=== PATIENT | male | born 1985 | race Caucasian/White ===

== ENCOUNTER 2020-04-28 04:03 | Inpatient (IN) ==
[2020-04-28] MEDS ORDERED: NS 0.9% 1000 ml BAG 1,000 ML IV ONE ×3 (04:18→07:12)
[2020-04-28] MEDS ORDERED: Al Hydrox/Mg Hydrox/Simet LIQ 30 ML UDC PO ONE (04:37)
[2020-04-28] MEDS ORDERED: Morphine 4 MG/ML VIAL (1 ml) IV ONE (04:38)
[2020-04-28] MEDS ORDERED: Ondansetron 4 mg VIAL 2 MG/ML 2 ml VIAL IV ONE (04:38)
[2020-04-28 04:53] LABS: ABS Basophils 0.1 10^3/ul (0-0.2); ABS Eosinophils 0.2 10^3/ul (0-0.6); ABS Lymphocytes 2.4 10^3/ul (1.0-4.8); ABS Monocytes 0.8 10^3/ul (0-0.8); ABS Neutrophils 12.7 10^3/ul (1.5-7.7); Eosinophil % 1.2 %; Hematocrit 43 % (42-52); Hemoglobin 15.4 g/dL (14.0-18.0); Mean Corpuscular HGB Conc 36 g/dL (31-36); Mean Corpuscular Hemoglobin 33 pg (27-31); Mean Corpuscular Volume 91 fL (80-94); Mean Platelet Volume 6.6 fL (7.4-10.4); Nucleated Red Blood Cells % 0.1; Platelet Count 402 10^3/uL (150-450); Red Cell Distribution Width 14 % (10-15); White Blood Count 16.2 10^3/uL (3.5-10.8)
[2020-04-28 05:42] LABS: Glucose 34 mg/dL (70-100)
[2020-04-28 05:43] LABS: ALT 24 U/L (7-52); BUN/Creatinine Ratio 9.8 (8-20); Blood Urea Nitrogen 10 mg/dL (6-24); CO2 Carbon Dioxide 19 mmol/L (22-32); EGFR African American 102.4 (>60); EGFR Non-African American 84.6 (>60)
[2020-04-28 05:44] LABS: Albumin 4.2 g/dL (3.2-5.2); Albumin/Globulin Ratio 1.5 (1-3); Alkaline Phosphatase 82 U/L (34-104); C Reactive Protein 22.18 mg/L (<8.01); Calcium 9.4 mg/dL (8.6-10.3); Globulin 2.8 g/dL (2-4); Lipase 305 U/L (11.0-82.0)
[2020-04-28 06:07] LABS: Potassium, Whole Blood 5.4 mmol/L (3.4-4.5)
[2020-04-28] MEDS ORDERED: Iohexol 300 (CONTRAST) 10 ML SDV IV ONE (06:28)
[2020-04-28] MEDS ORDERED: Pantoprazole VIAL 40 MG VIAL IV ONE (07:11)
[2020-04-28] MEDS ORDERED: cefTRIAXone 1 gm/50 mL NS BAG 1 GM/50 ML BAG IV ONE (07:11)
[2020-04-28 08:09] LABS: Cholesterol 424 mg/dL; HDL Cholesterol 27.3 mg/dL; Triglycerides 3204 mg/dL
[2020-04-28 08:23] LABS: Urine Appearance Clear; Urine Bilirubin Negative (Negative); Urine Blood Negative (Negative); Urine Color Yellow; Urine Glucose Negative (Negative); Urine Ketones Negative (Negative); Urine Nitrite Negative (Negative); Urine Protein Negative (Negative); Urine Specific Gravity 1.011 (1.010-1.030); Urine Urobilinogen Negative (Negative)
[2020-04-28 08:28] LABS: LDL Cholesterol Direct 85 mg/dL
[2020-04-28] MEDS ORDERED: fentaNYL 100 mcg/2 ml 50 MCG/ML VIAL IV SLOW PU ONE (09:19)
[2020-04-28] MEDS ORDERED: D5LR 1000 ml BAG 1,000 ML IV SCH (10:00)
[2020-04-28] MEDS ORDERED: Gemfibrozil 600 mg PO SCH (10:00)
[2020-04-28] MEDS ORDERED: Dextrose 50% Syringe 50 ml 25 GM/50 ML SYRINGE IV PUSH PRN (11:13)
[2020-04-28] MEDS ORDERED: Insulin Infusion 100unit/100mL 100 UNIT/100 ML BAG IV SCH ×2 (11:30→12:00)
[2020-04-28 12:23] LABS: BUN/Creatinine Ratio 9.1 (8-20); Blood Urea Nitrogen 8 mg/dL (6-24); CO2 Carbon Dioxide 22 mmol/L (22-32); Calcium 8.8 mg/dL (8.6-10.3); EGFR African American 121.4 (>60); EGFR Non-African American 100.4 (>60); Glucose 88 mg/dL (70-100)
[2020-04-28 13:37] LABS: Potassium, Whole Blood 5.6 mmol/L (3.4-4.5)
[2020-04-28] MEDS: Heparin 5000 UNITS/ML 1 mL VIAL SUBCUT SCH ×2 (14:34→21:45)
[2020-04-28 16:10] LABS: Creatine Kinase 104 U/L (10-223)
[2020-04-28] MEDS ORDERED: D10W 1000 ml BAG 1,000 ML IV SCH (17:00)
[2020-04-28] MEDS: Sodium Chloride CONC. 4 MEQ/ML 77 MEQ in D10W 1000 ml BAG 1,000 ML IV SCH (18:14)
[2020-04-28 20:02] LABS: BUN/Creatinine Ratio 10.1 (8-20); Blood Urea Nitrogen 8 mg/dL (6-24); CO2 Carbon Dioxide 24 mmol/L (22-32); Calcium 8.6 mg/dL (8.6-10.3); Chloride 102 mmol/L (101-111); EGFR African American 137.5 (>60); EGFR Non-African American 113.7 (>60); Glucose 146 mg/dL (70-100); Sodium 132 mmol/L (135-145)
[2020-04-28 20:06] LABS: Anion Gap 6 mmol/L (2-11)
[2020-04-28] MEDS: Nicotine PATCH 21 MG/24 HR PATCH TRANSDERM SCH (21:45)
[2020-04-29] MEDS ORDERED: DEXTROSE IV SCH (02:00)
[2020-04-29] MEDS ORDERED: [UNRECOGNIZED DRUG - OTHER] IV SCH (02:00)
[2020-04-29 02:02] LABS: Anion Gap 5 mmol/L (2-11); BUN/Creatinine Ratio 9.9 (8-20); Blood Urea Nitrogen 8 mg/dL (6-24); CO2 Carbon Dioxide 22 mmol/L (22-32); Calcium 7.6 mg/dL (8.6-10.3); Chloride 99 mmol/L (101-111); EGFR African American 133.6 (>60); EGFR Non-African American 110.4 (>60); Potassium 3.4 mmol/L (3.5-5.0); Sodium 126 mmol/L (135-145)
[2020-04-29 02:36] LABS: BUN/Creatinine Ratio 11.7 (8-20); Blood Urea Nitrogen 9 mg/dL (6-24); CO2 Carbon Dioxide 24 mmol/L (22-32); Calcium 8.7 mg/dL (8.6-10.3); Chloride 101 mmol/L (101-111); EGFR African American 141.7 (>60); EGFR Non-African American 117.1 (>60); Glucose 131 mg/dL (70-100); Sodium 131 mmol/L (135-145)
[2020-04-29 02:38] LABS: Anion Gap 6 mmol/L (2-11)
[2020-04-29] MEDS: Sodium Chloride CONC. 4 MEQ/ML 77 MEQ in D10W 1000 ml BAG 1,000 ML IV SCH (04:06)
[2020-04-29] MEDS ORDERED: Potassium Chlor 20 meq TAB.ER PO ONE (04:30)
[2020-04-29 05:25] LABS: ABS Basophils 0.1 10^3/ul (0-0.2); ABS Eosinophils 0.1 10^3/ul (0-0.6); ABS Lymphocytes 2.5 10^3/ul (1.0-4.8); ABS Neutrophils 11.5 10^3/ul (1.5-7.7); Eosinophil % 0.6 %; Hematocrit 42 % (42-52); Hemoglobin 14.8 g/dL (14.0-18.0); Lymphocyte % 16.3 %; Mean Corpuscular HGB Conc 35 g/dL (31-36); Mean Corpuscular Hemoglobin 32 pg (27-31); Mean Corpuscular Volume 92 fL (80-94); Mean Platelet Volume 6.5 fL (7.4-10.4); Nucleated Red Blood Cells % 0.1; Platelet Count 328 10^3/uL (150-450); Red Blood Count 4.62 10^6 /uL (4.18-5.48); Red Cell Distribution Width 14 % (10-15); White Blood Count 15.1 10^3/uL (3.5-10.8)
[2020-04-29] MEDS: Heparin 5000 UNITS/ML 1 mL VIAL SUBCUT SCH ×3 (05:28→21:57)
[2020-04-29 05:41] LABS: Calcium 8.5 mg/dL (8.6-10.3); EGFR Non-African American 120.7 (>60); Magnesium 1.9 mg/dL (1.9-2.7); Phosphorus 2.6 mg/dL (2.5-5.0); Potassium 3.8 mmol/L (3.5-5.0)
[2020-04-29] MEDS: Nicotine PATCH 21 MG/24 HR PATCH TRANSDERM SCH (09:05)
[2020-04-29 09:40] LABS: Calcium 8.7 mg/dL (8.6-10.3); EGFR African American 131.7 (>60); EGFR Non-African American 108.9 (>60); Potassium 4.2 mmol/L (3.5-5.0)
[2020-04-29] MEDS ORDERED: Lactated Ringers 1000 ml BAG 1,000 ML IV ONE (11:47)
[2020-04-29 14:01] LABS: Magnesium 1.9 mg/dL (1.9-2.7); Phosphorus 2.7 mg/dL (2.5-5.0)
[2020-04-29 14:50] LABS: Urine Appearance Clear; Urine Bilirubin Negative (Negative); Urine Blood Negative (Negative); Urine Color Straw; Urine Glucose Negative (Negative); Urine Ketones Negative (Negative); Urine Nitrite Negative (Negative); Urine Protein Negative (Negative); Urine Specific Gravity 1.004 (1.010-1.030); Urine Urobilinogen Negative (Negative)
[2020-04-30] MEDS: Heparin 5000 UNITS/ML 1 mL VIAL SUBCUT SCH (05:29)
[2020-04-30 07:09] VITALS: BP 142/77
[2020-04-30 07:53] LABS: ABS Basophils 0.1 10^3/ul (0-0.2); ABS Eosinophils 0.1 10^3/ul (0-0.6); ABS Lymphocytes 2.7 10^3/ul (1.0-4.8); ABS Monocytes 1.1 10^3/ul (0-0.8); ABS Neutrophils 11.3 10^3/ul (1.5-7.7); Eosinophil % 0.6 %; Hematocrit 40 % (42-52); Hemoglobin 13.8 g/dL (14.0-18.0); Lymphocyte % 17.8 %; Mean Corpuscular HGB Conc 35 g/dL (31-36); Mean Corpuscular Hemoglobin 32 pg (27-31); Mean Corpuscular Volume 93 fL (80-94); Mean Platelet Volume 6.8 fL (7.4-10.4); Platelet Count 300 10^3/uL (150-450); Red Cell Distribution Width 13 % (10-15); White Blood Count 15.2 10^3/uL (3.5-10.8)
[2020-04-30 08:05] LABS: BUN/Creatinine Ratio 13.8 (8-20); Calcium 8.7 mg/dL (8.6-10.3); EGFR Non-African American 101.7 (>60); Potassium 3.9 mmol/L (3.5-5.0)
[2020-04-30] MEDS: Nicotine PATCH 21 MG/24 HR PATCH TRANSDERM SCH (09:19)
[2020-04-30 11:15] LABS: C Reactive Protein 228.19 mg/L (<8.01)
== END 2020-04-30 10:32 | disposition left against medical advice (07) | DRG 282 ==
LOC: ED 04:03 → ICU 09:25 → MEDTELE 04-29 18:43
PROVIDERS: ADMIT Internal Medicine Critical Care Medicine; ATTEND Internal Medicine

== ENCOUNTER 2023-10-27 14:50 | Inpatient (IN) ==
[2023-10-27 16:11] LABS: High Sens Troponin Baseline 5 pg/mL (<20)
[2023-10-27 16:13] LABS: INR 1.01 (0.85-1.14)
[2023-10-27] MEDS: Morphine 4 MG/ML VIAL (1 ml) IV ONE ×3 (16:25→19:14)
[2023-10-27] MEDS: Ondansetron 4 mg VIAL 2 MG/ML 2 ml VIAL IV ONE (16:25)
[2023-10-27] MEDS: Lactated Ringers 1000 ml BAG 1,000 ML IV ONE ×2 (16:25→18:06)
[2023-10-27 16:49] LABS: ABS Basophils 0.1 10^3/uL (0.0-0.1); ABS Lymphocytes 1.6 10^3/uL (1.0-4.8); ABS Monocytes 0.8 10^3/uL (0.0-1.1); ABS Neutrophils 16.5 10^3/uL (1.5-7.6); ABS Nucleated RBC 0.03 10^3/ul; Eosinophil % 0.2 %; Hematocrit 43.1 % (38-53); Hemoglobin 15.9 g/dL (13.2-16.3); Lymphocyte % 8.6 %; Mean Corpuscular Hemoglobin 33.9 pg (27-33); Mean Corpuscular Hgb Conc 36.8 g/dL (31-36); Mean Platelet Volume 8.8 fL (7.5-11.2); Nucleated Red Blood Cells % 0.2 %/100WBC (0.0-0.8); Platelet Count 365 10^3/uL (150-450); Red Blood Count 4.68 10^6/uL (4.06-5.63); Red Cell Distribution Width 14.3 % (12-17); White Blood Count 19.1 10^3/uL (3.6-10.2)
[2023-10-27 17:04] LABS: Sodium 124 mmol/L (135-145)
[2023-10-27 17:05] LABS: ALT 27 U/L (7-52); Albumin 4.9 g/dL (3.2-5.2); Albumin/Globulin Ratio 1.9 (1-3); Alkaline Phosphatase 78 U/L (35-149); Anion Gap 4 mmol/L (2-16); Blood Urea Nitrogen 14 mg/dL (6-24); C Reactive Protein 14.73 mg/L (<8.01); CO2 Carbon Dioxide 25 mmol/L (22-32); Calcium 9.1 mg/dL (8.6-10.3); Chloride 95 mmol/L (101-111); Creatinine, Serum 1.33 mg/dL (0.67-1.17); Globulin 2.6 g/dL (2-4); Glucose 130 mg/dL (70-100); Total Bilirubin 0.4 mg/dL (0.2-1.0); Total Protein 7.5 g/dL (6.4-8.9)
[2023-10-27 17:06] LABS: Urine Appearance Clear; Urine Bilirubin Negative (Negative); Urine Blood Negative (Negative); Urine Color Light-Yellow; Urine Glucose Negative (Negative); Urine Ketones Negative (Negative); Urine Nitrite Negative (Negative); Urine Protein Negative (Negative); Urine Specific Gravity 1.027 (1.002-1.030); Urine Urobilinogen Negative (Negative)
[2023-10-27 17:13] LABS: High Sensitivity Troponin 1 Hr 6 pg/mL (<20)
[2023-10-27] MEDS: Iohexol 350 (CONTRAST) 500 ML MDV IV ONE (17:22)
[2023-10-27 18:43] LABS: Triglycerides 3259 mg/dL
[2023-10-27 20:04] LABS: Potassium, Whole Blood 8.1 mmol/L (3.4-4.5)
[2023-10-27] MEDS: Acetaminophen IV 1 GM/100ML 1,000 MG/100 ML BAG IV PRN (20:27)
[2023-10-27 21:03] LABS: Cholesterol 360 mg/dL; HDL Cholesterol 24.8 mg/dL
[2023-10-27 21:04] LABS: Triglycerides 2331 mg/dL
[2023-10-27 21:32] LABS: LDL Cholesterol Direct 81 mg/dL
[2023-10-27 21:43] LABS: Albumin 3.9 g/dL (3.2-5.2); Albumin/Globulin Ratio 1.5 (1-3); Alkaline Phosphatase 86 U/L (35-149); Anion Gap 10 mmol/L (2-16); Blood Urea Nitrogen 13 mg/dL (6-24); CO2 Carbon Dioxide 21 mmol/L (22-32); Calcium 8.1 mg/dL (8.6-10.3); Chloride 97 mmol/L (101-111); Creatinine, Serum 0.78 mg/dL (0.67-1.17); Globulin 2.6 g/dL (2-4); Glucose 156 mg/dL (70-100); Sodium 128 mmol/L (135-145); Total Protein 6.5 g/dL (6.4-8.9); eGFR CKD-EPI 118.5 (>60)
[2023-10-27] MEDS: Dextrose 50% Syringe 50 ml 25 GM/50 ML SYRINGE IV PUSH ONE (21:45)
[2023-10-27] MEDS: CALCIUM GLUCONATE 1GM/50ML NS 1 GM/50 ML BAG IV ONE (21:48)
[2023-10-27] MEDS ORDERED: Dextrose 50% Syringe 50 ml 25 GM/50 ML SYRINGE IV PUSH PRN (22:34)
[2023-10-27 22:44] LABS: ALT 27 U/L (7-52)
[2023-10-27] MEDS: Lactated Ringers 1000 ml BAG 1,000 ML IV SCH ×2 (23:04→23:15)
[2023-10-27 23:11] LABS: ABS Basophils 0.1 10^3/uL (0.0-0.1); ABS Lymphocytes 1.3 10^3/uL (1.0-4.8); ABS Monocytes 0.7 10^3/uL (0.0-1.1); ABS Neutrophils 12.1 10^3/uL (1.5-7.6); ABS Nucleated RBC 0.02 10^3/ul; Eosinophil % 0.1 %; Hematocrit 52.7 % (38-53); Hemoglobin 18.2 g/dL (13.2-16.3); Lymphocyte % 9.3 %; Mean Corpuscular Hemoglobin 31.8 pg (27-33); Mean Corpuscular Hgb Conc 34.5 g/dL (31-36); Mean Corpuscular Volume 92.1 fL (80-97); Mean Platelet Volume 7.1 fL (7.5-11.2); Nucleated Red Blood Cells % 0.1 %/100WBC (0.0-0.8); Platelet Count 358 10^3/uL (150-450); Red Blood Count 5.71 10^6/uL (4.06-5.63); Red Cell Distribution Width 13.9 % (12-17); White Blood Count 14.2 10^3/uL (3.6-10.2)
[2023-10-28] MEDS: Ondansetron 4 mg VIAL 2 MG/ML 2 ml VIAL IV PRN (00:07)
[2023-10-28] MEDS: Insulin Infusion 100unit/100mL 100 UNIT/100 ML BAG IV SCH ×3 (00:09→05:05)
[2023-10-28] MEDS: D5LR 1000 ml BAG 1,000 ML IV SCH ×2 (00:10→04:20)
[2023-10-28] MEDS: Lactated Ringers 1000 ml BAG 1,000 ML IV ONE (00:52)
[2023-10-28] MEDS: Enoxaparin 40 MG/0.4 ML SYR SUBCUT SCH (01:13)
[2023-10-28 04:12] LABS: Hematocrit 53.1 % (38-53); Hemoglobin 18.4 g/dL (13.2-16.3); Mean Corpuscular Hgb Conc 34.6 g/dL (31-36); Mean Corpuscular Volume 92.4 fL (80-97); Mean Platelet Volume 7.3 fL (7.5-11.2); Platelet Count 312 10^3/uL (150-450); Red Blood Count 5.75 10^6/uL (4.06-5.63); White Blood Count 9.9 10^3/uL (3.6-10.2)
[2023-10-28 05:19] LABS: ALT 19 U/L (7-52); Albumin 3.3 g/dL (3.2-5.2); Albumin/Globulin Ratio 1.5 (1-3); Alkaline Phosphatase 73 U/L (35-149); Anion Gap 8 mmol/L (2-16); Blood Urea Nitrogen 15 mg/dL (6-24); CO2 Carbon Dioxide 20 mmol/L (22-32); Calcium 7.5 mg/dL (8.6-10.3); Chloride 102 mmol/L (101-111); Creatinine, Serum 0.86 mg/dL (0.67-1.17); Globulin 2.2 g/dL (2-4); Glucose 163 mg/dL (70-100); Sodium 130 mmol/L (135-145); Total Protein 5.5 g/dL (6.4-8.9); eGFR CKD-EPI 115.1 (>60)
[2023-10-28 05:22] LABS: Potassium, Whole Blood 5.1 mmol/L (3.4-4.5)
[2023-10-28] MEDS: Benzocaine/Menthol LOZ PO PRN (08:58)
[2023-10-28] MEDS: Nicotine PATCH 14 MG/24 HR PATCH TRANSDERM SCH (08:58)
[2023-10-28 10:36] LABS: Anion Gap 11 mmol/L (2-16); Blood Urea Nitrogen 18 mg/dL (6-24); CO2 Carbon Dioxide 22 mmol/L (22-32); Calcium 7.3 mg/dL (8.6-10.3); Chloride 99 mmol/L (101-111); Creatinine, Serum 0.94 mg/dL (0.67-1.17); Glucose 131 mg/dL (70-100); Sodium 132 mmol/L (135-145); eGFR CKD-EPI 107.7 (>60)
[2023-10-28 11:19] LABS: Potassium, Whole Blood 5.4 mmol/L (3.4-4.5)
[2023-10-28 12:52] LABS: Creatine Kinase 95 U/L (10-223)
[2023-10-28] MEDS: Calcium Carb (TUMS) 500 mg CHEW TAB PO PRN (13:18)
[2023-10-28 16:44] LABS: Anion Gap 5 mmol/L (2-16); Blood Urea Nitrogen 19 mg/dL (6-24); CO2 Carbon Dioxide 28 mmol/L (22-32); Chloride 99 mmol/L (101-111); Creatinine, Serum 1.17 mg/dL (0.67-1.17); Glucose 133 mg/dL (70-100); Sodium 132 mmol/L (135-145); eGFR CKD-EPI 82.9 (>60)
[2023-10-28 16:57] LABS: Potassium, Whole Blood 4.9 mmol/L (3.4-4.5)
[2023-10-28] MEDS: Metoprolol Tartrate 5 mg VIAL 5 ml VIAL (1 mg/ml) IV PRN (17:00)
[2023-10-28 17:30] LABS: ABS Lymphocytes 1.1 10^3/uL (1.0-4.8); ABS Monocytes 0.6 10^3/uL (0.0-1.1); ABS Neutrophils 7.4 10^3/uL (1.5-7.6); Eosinophil % 0.1 %; Hematocrit 50.4 % (38-53); Hemoglobin 17.4 g/dL (13.2-16.3); Lymphocyte % 11.7 %; Mean Corpuscular Hemoglobin 32.3 pg (27-33); Mean Corpuscular Hgb Conc 34.6 g/dL (31-36); Mean Corpuscular Volume 93.4 fL (80-97); Mean Platelet Volume 7.4 fL (7.5-11.2); Platelet Count 267 10^3/uL (150-450); Red Blood Count 5.39 10^6/uL (4.06-5.63); Red Cell Distribution Width 14.4 % (12-17); White Blood Count 9.1 10^3/uL (3.6-10.2)
[2023-10-28] MEDS: Succinylcholine 200 mg VIAL 20 mg/ml 10 ml VIAL (200 mg) ONE (17:49)
[2023-10-28] MEDS: Rocuronium 50 mg VIAL 10 mg/ml 5 ml VIAL (50 mg) ONE (17:49)
[2023-10-28] MEDS ORDERED: diazePAM INJ CARPUJECT 5 MG/ML SYRINGE IV PRN (17:59)
[2023-10-28] MEDS ORDERED: Zosyn per Pharmacy NOTE FOLLOW UP SCH (18:00)
[2023-10-28 18:03] LABS: Magnesium 1.5 mg/dL (1.9-2.7); Potassium Redraw 4.3 mmol/L (3.5-5.0)
[2023-10-28] MEDS: Metoprolol Tartrate 5 mg VIAL 5 ml VIAL (1 mg/ml) ONE (18:07)
[2023-10-28] MEDS: Albumin Human 5% 12.5 GM/250 ML BTL IV ONE (18:08)
[2023-10-28] MEDS ORDERED: LORazepam 2 MG/ML 1 mL Syringe IV PRN (18:12)
[2023-10-28] MEDS ORDERED: LORazepam 2 mg VIAL 1 ml IV PUSH PRN (18:23)
[2023-10-28 18:25] LABS: Albumin/Globulin Ratio 1.4 (1-3); Calcium 7.9 mg/dL (8.6-10.3); Creatinine, Serum 0.92 mg/dL (0.67-1.17); Globulin 2.2 g/dL (2-4); Potassium 4.3 mmol/L (3.5-5.0); Total Bilirubin 1.3 mg/dL (0.2-1.0); Total Protein 5.2 g/dL (6.4-8.9); eGFR CKD-EPI 110.6 (>60)
[2023-10-28] MEDS: Piperacillin/Tazobac 3.375 BAG 3.375 GM/100 ML BAG IV ONE (18:53)
[2023-10-28] MEDS: Magnesium Sulf 4 GM/100 ML IV 4,000 MG/100 ML BAG IVPB ONE (19:28)
[2023-10-28 21:11] LABS: PCO2 Arterial 39 mmHg (35-45); PO2 Arterial 69 mmHg (80-100)
[2023-10-28 21:58] LABS: Anion Gap 6 mmol/L (2-16); Blood Urea Nitrogen 21 mg/dL (6-24); CO2 Carbon Dioxide 23 mmol/L (22-32); Calcium 7.7 mg/dL (8.6-10.3); Chloride 101 mmol/L (101-111); Creatinine, Serum 1.11 mg/dL (0.67-1.17); Glucose 145 mg/dL (70-100); Sodium 130 mmol/L (135-145); eGFR CKD-EPI 88.3 (>60)
[2023-10-28] MEDS: Albumin Human 5% 25 GM/500 ML BTL IV ONE (22:13)
[2023-10-28 22:14] LABS: Potassium, Whole Blood 4.3 mmol/L (3.4-4.5)
[2023-10-28] MEDS: Furosemide 40 mg/4 ml IV VIAL IV ONE (22:17)
[2023-10-28 22:31] LABS: Urine Appearance Extra Turbid; Urine Bilirubin Negative (Negative); Urine Blood Trace (Negative); Urine Glucose Negative (Negative); Urine Ketones Negative (Negative); Urine Nitrite Negative (Negative); Urine Protein 1+ (>=30 mg/dL) (Negative); Urine Specific Gravity 1.035 (1.002-1.030); Urine Urobilinogen Negative (Negative); Urine pH 5.5 (5.0-8.0)
[2023-10-28 22:34] LABS: Urine Color Light-Yellow
[2023-10-28 22:51] LABS: Urine Bacteria Absent /HPF (Absent); Urine Red Blood Cell 1+(3-5/hpf) /HPF (0-Trace); Urine White Blood Cell Absent /HPF (0-Trace)
[2023-10-28] MEDS: ZOSYN 3.375 GM Q8H per EXTENDED INFUSION IV SCH (23:06)
[2023-10-29] MEDS: Acetaminophen IV 1 GM/100ML 1,000 MG/100 ML BAG IV PRN (00:06)
[2023-10-29] MEDS: Iohexol 350 (CONTRAST) 500 ML MDV IV ONE (00:19)
[2023-10-29 04:52] LABS: C Reactive Protein 342.28 mg/L (<8.01)
[2023-10-29] MEDS: Furosemide 40 mg/4 ml IV VIAL IV ONE (04:58)
[2023-10-29 05:17] LABS: ABS Lymphocytes 1.3 10^3/uL (1.0-4.8); ABS Monocytes 0.5 10^3/uL (0.0-1.1); ABS Neutrophils 10.2 10^3/uL (1.5-7.6); ABS Nucleated RBC 0.01 10^3/ul; Eosinophil % 0.3 %; Hemoglobin 15.7 g/dL (13.2-16.3); Lymphocyte % 10.4 %; Mean Corpuscular Hemoglobin 32.2 pg (27-33); Mean Corpuscular Volume 94.8 fL (80-97); Mean Platelet Volume 7.2 fL (7.5-11.2); Nucleated Red Blood Cells % 0.1 %/100WBC (0.0-0.8); Platelet Count 220 10^3/uL (150-450); Red Blood Count 4.86 10^6/uL (4.06-5.63); Red Cell Distribution Width 14.7 % (12-17)
[2023-10-29 06:03] LABS: Potassium 4.6 mmol/L (3.5-5.0); Sodium 132 mmol/L (135-145)
[2023-10-29 06:04] LABS: Anion Gap 8 mmol/L (2-16); Blood Urea Nitrogen 20 mg/dL (6-24); CO2 Carbon Dioxide 27 mmol/L (22-32); Calcium 8.1 mg/dL (8.6-10.3); Chloride 97 mmol/L (101-111); Creatinine, Serum 1.15 mg/dL (0.67-1.17); Glucose 148 mg/dL (70-100); Magnesium 2.3 mg/dL (1.9-2.7); Triglycerides 628 mg/dL; eGFR CKD-EPI 84.6 (>60)
[2023-10-29] MEDS ORDERED: Senna TAB 8.6 mg TAB PO PRN (07:15)
[2023-10-29] MEDS ORDERED: Polyethylene Glycol 3350 17 GM PACKET PO PRN (07:15)
[2023-10-29] MEDS: LORazepam 2 mg VIAL 1 ml IV PUSH PRN (11:55)
[2023-10-29 12:31] LABS: ALT 13 U/L (7-52); Albumin 3.2 g/dL (3.2-5.2); Albumin/Globulin Ratio 1.5 (1-3); Alkaline Phosphatase 67 U/L (35-149); Globulin 2.2 g/dL (2-4); Total Bilirubin 1.2 mg/dL (0.2-1.0); Total Protein 5.4 g/dL (6.4-8.9)
[2023-10-29] MEDS: Ondansetron 4 mg VIAL 2 MG/ML 2 ml VIAL IV ONE ×2 (14:06→21:23)
[2023-10-29] MEDS: Prochlorperazine 5 mg/ml 2 ml VIAL (10 mg) IV ONE (14:07)
[2023-10-29] MEDS: Lidocaine 1% MPF 5 ML VIAL INJ ONE (16:04)
[2023-10-29 16:54] LABS: ABS Monocytes 0.6 10^3/uL (0.0-1.1); ABS Neutrophils 10.7 10^3/uL (1.5-7.6); Eosinophil % 0.3 %; Hematocrit 39.6 % (38-53); Hemoglobin 13.1 g/dL (13.2-16.3); Lymphocyte % 7.7 %; Mean Corpuscular Hemoglobin 31.1 pg (27-33); Mean Corpuscular Volume 94.3 fL (80-97); Mean Platelet Volume 7.8 fL (7.5-11.2); Platelet Count 222 10^3/uL (150-450); Red Blood Count 4.21 10^6/uL (4.06-5.63); Red Cell Distribution Width 14.4 % (12-17); White Blood Count 12.3 10^3/uL (3.6-10.2)
[2023-10-29 17:51] LABS: Anion Gap 16 mmol/L (2-16); Blood Urea Nitrogen 19 mg/dL (6-24); CO2 Carbon Dioxide 17 mmol/L (22-32); Calcium 7.9 mg/dL (8.6-10.3); Chloride 99 mmol/L (101-111); Glucose 146 mg/dL (70-100); Sodium 132 mmol/L (135-145); eGFR CKD-EPI 113.5 (>60)
[2023-10-29] MEDS ORDERED: Metoprolol Tartrate 5 mg VIAL 5 ml VIAL (1 mg/ml) IV PRN (20:40)
[2023-10-29 22:56] LABS: Calcium 8.4 mg/dL (8.6-10.3); Creatinine, Serum 0.9 mg/dL (0.67-1.17); Direct Bilirubin Redraw 0.1 mg/dL (0.1-0.5); Potassium 3.8 mmol/L (3.5-5.0); Potassium Redraw 3.8 mmol/L (3.5-5.0); eGFR CKD-EPI 113.5 (>60)
[2023-10-30] MEDS: HYDROmorphone 0.5 MG/0.5 ML SYRINGE IV SLOW PU PRN (02:54)
[2023-10-30 03:25] LABS: Calcium 8.4 mg/dL (8.6-10.3); Creatinine, Serum 0.83 mg/dL (0.67-1.17); Potassium 3.7 mmol/L (3.5-5.0); eGFR CKD-EPI 116.3 (>60)
[2023-10-30 05:57] LABS: Hematocrit 34.7 % (38-53); Hemoglobin 11.4 g/dL (13.2-16.3); Mean Corpuscular Hemoglobin 31.1 pg (27-33); Mean Corpuscular Volume 94.2 fL (80-97); Platelet Count 205 10^3/uL (150-450); Red Blood Count 3.68 10^6/uL (4.06-5.63); Red Cell Distribution Width 14.3 % (12-17); White Blood Count 12.6 10^3/uL (3.6-10.2)
[2023-10-30 06:07] LABS: Albumin 2.9 g/dL (3.2-5.2); Albumin/Globulin Ratio 1.2 (1-3); Calcium 8.5 mg/dL (8.6-10.3); Creatinine, Serum 0.73 mg/dL (0.67-1.17); Globulin 2.5 g/dL (2-4); Potassium 3.7 mmol/L (3.5-5.0); Total Bilirubin 0.8 mg/dL (0.2-1.0); Total Protein 5.4 g/dL (6.4-8.9); eGFR CKD-EPI 120.9 (>60)
[2023-10-30 07:18] LABS: ABS Eosinophils 0.1 10^3/uL (0.0-0.5); ABS Lymphocytes 1.2 10^3/uL (1.0-4.8); ABS Monocytes 0.8 10^3/uL (0.0-1.1); ABS Neutrophils 10.5 10^3/uL (1.5-7.6); Eosinophil % 0.5 %; Lymphocyte % 9.1 %
[2023-10-31 04:27] LABS: ABS Basophils 0.1 10^3/uL (0.0-0.1); ABS Eosinophils 0.1 10^3/uL (0.0-0.5); ABS Lymphocytes 1.6 10^3/uL (1.0-4.8); ABS Monocytes 1.1 10^3/uL (0.0-1.1); ABS Neutrophils 10.3 10^3/uL (1.5-7.6); ABS Nucleated RBC 0.01 10^3/ul; Eosinophil % 0.5 %; Hematocrit 31.6 % (38-53); Hemoglobin 10.8 g/dL (13.2-16.3); Lymphocyte % 12.4 %; Mean Corpuscular Hgb Conc 34.2 g/dL (31-36); Mean Corpuscular Volume 93.6 fL (80-97); Mean Platelet Volume 6.7 fL (7.5-11.2); Platelet Count 217 10^3/uL (150-450); Red Blood Count 3.37 10^6/uL (4.06-5.63); Red Cell Distribution Width 14.1 % (12-17); White Blood Count 13.3 10^3/uL (3.6-10.2)
[2023-10-31 05:12] LABS: Albumin 2.9 g/dL (3.2-5.2); Albumin/Globulin Ratio 1.3 (1-3); Calcium 7.9 mg/dL (8.6-10.3); Creatinine, Serum 0.68 mg/dL (0.67-1.17); Globulin 2.2 g/dL (2-4); Potassium 3.6 mmol/L (3.5-5.0); Total Bilirubin 0.8 mg/dL (0.2-1.0); Total Protein 5.1 g/dL (6.4-8.9); eGFR CKD-EPI 123.5 (>60)
[2023-11-01 05:07] LABS: Hematocrit 31.8 % (38-53); Hemoglobin 10.7 g/dL (13.2-16.3); Mean Corpuscular Hemoglobin 31.2 pg (27-33); Mean Corpuscular Hgb Conc 33.6 g/dL (31-36); Mean Corpuscular Volume 92.7 fL (80-97); Mean Platelet Volume 6.8 fL (7.5-11.2); Platelet Count 226 10^3/uL (150-450); Red Blood Count 3.43 10^6/uL (4.06-5.63); Red Cell Distribution Width 14.3 % (12-17); White Blood Count 12.2 10^3/uL (3.6-10.2)
[2023-11-01 05:13] LABS: Albumin 2.9 g/dL (3.2-5.2); Albumin/Globulin Ratio 1.2 (1-3); Calcium 7.8 mg/dL (8.6-10.3); Creatinine, Serum 0.67 mg/dL (0.67-1.17); Globulin 2.4 g/dL (2-4); Potassium 3.4 mmol/L (3.5-5.0); Total Bilirubin 0.8 mg/dL (0.2-1.0); Total Protein 5.3 g/dL (6.4-8.9); eGFR CKD-EPI 124.1 (>60)
[2023-11-01 06:31] LABS: ABS Lymphocytes 1.4 10^3/uL (1.0-4.8); ABS Monocytes 1.3 10^3/uL (0.0-1.1); ABS Neutrophils 9.4 10^3/uL (1.5-7.6); ABS Nucleated RBC 0.01 10^3/ul; Eosinophil % 0.4 %; Lymphocyte % 11.4 %; Nucleated Red Blood Cells % 0.1 %/100WBC (0.0-0.8)
[2023-11-01] MEDS: Potassium Chlor 20 meq TAB.ER PO ONE (08:33)
[2023-11-01] MEDS ORDERED: HYDROmorphone 1 MG/1 ML SYRINGE IV SLOW PU PRN (11:31)
[2023-11-01] MEDS: Iohexol 300 (CONTRAST) 10 ML SDV IV ONE (12:33)
[2023-11-01] MEDS ORDERED: Saline NASAL SPRAY 0.65% BTL BOTH NARES PRN (15:01)
[2023-11-01] MEDS: Enoxaparin 100 MG/ML SYR SUBCUT SCH (17:23)
[2023-11-02 06:33] LABS: Hematocrit 34.2 % (38-53); Hemoglobin 11.7 g/dL (13.2-16.3); Mean Corpuscular Hemoglobin 31.4 pg (27-33); Mean Corpuscular Hgb Conc 34.1 g/dL (31-36); Mean Corpuscular Volume 92.3 fL (80-97); Platelet Count 258 10^3/uL (150-450); Red Blood Count 3.71 10^6/uL (4.06-5.63); Red Cell Distribution Width 13.9 % (12-17); White Blood Count 13.4 10^3/uL (3.6-10.2)
[2023-11-02 06:54] LABS: ABS Eosinophils 0.1 10^3/uL (0.0-0.5); ABS Lymphocytes 1.2 10^3/uL (1.0-4.8); ABS Monocytes 1.2 10^3/uL (0.0-1.1); ABS Neutrophils 10.9 10^3/uL (1.5-7.6); ABS Nucleated RBC 0.04 10^3/ul; Eosinophil % 0.7 %; Lymphocyte % 9.1 %; Nucleated Red Blood Cells % 0.3 %/100WBC (0.0-0.8)
[2023-11-02 07:06] LABS: Calcium 7.9 mg/dL (8.6-10.3); Creatinine, Serum 0.64 mg/dL (0.67-1.17); Magnesium 2.1 mg/dL (1.9-2.7); Potassium 3.5 mmol/L (3.5-5.0); eGFR CKD-EPI 125.8 (>60)
[2023-11-03 05:49] LABS: Hemoglobin 11.3 g/dL (13.2-16.3); Mean Corpuscular Hemoglobin 31.8 pg (27-33); Mean Corpuscular Hgb Conc 34.2 g/dL (31-36); Mean Corpuscular Volume 92.8 fL (80-97); Mean Platelet Volume 6.7 fL (7.5-11.2); Platelet Count 298 10^3/uL (150-450); Red Blood Count 3.55 10^6/uL (4.06-5.63); Red Cell Distribution Width 14.4 % (12-17); White Blood Count 15.8 10^3/uL (3.6-10.2)
[2023-11-03 06:08] LABS: Calcium 8.1 mg/dL (8.6-10.3); Creatinine, Serum 0.69 mg/dL (0.67-1.17); Potassium 3.4 mmol/L (3.5-5.0)
[2023-11-03 07:03] LABS: ABS Eosinophils 0.1 10^3/uL (0.0-0.5); ABS Lymphocytes 1.9 10^3/uL (1.0-4.8); ABS Monocytes 1.3 10^3/uL (0.0-1.1); ABS Neutrophils 12.4 10^3/uL (1.5-7.6); ABS Nucleated RBC 0.04 10^3/ul; Eosinophil % 0.8 %; Nucleated Red Blood Cells % 0.2 %/100WBC (0.0-0.8)
[2023-11-03 09:19] VITALS: BP 149/91
[2023-11-03] MEDS: Potassium Chloride LIQUID 20 MEQ/15 ML LIQUID PO ONE (09:23)
== END 2023-11-03 12:45 | disposition home or self-care (01) | DRG 282 ==
LOC: ED 14:50 → EDHOLD 19:16 → ICU 10-28 00:35 → MED 10-31 08:07
PROVIDERS: ADMIT Internal Medicine; ATTEND Internal Medicine Hematology & Oncology